=== PATIENT | female | born 1990 | race Caucasian/White ===

== ENCOUNTER 2017-03-12 11:15 | Emergency (ER) | payer SELFPAY ==
[~2017-03-12] VITALS: Ht 157.5 cm; Wt 108.9 kg
[~2017-03-12 11:15] MED LIST: FLUT16SP2 NAS; HYDR-3237 PO; LEVO750T26 PO; NORE1PAT7 TD; PANT40TA3 PO; POLY17PO5 PO; SIME80TA16 PO
[2017-03-12 11:16] VITALS: BP 131/84
[2017-03-12] MEDS ORDERED: DEXAMETHASONE 4 MG/ML, 5ML ONE (11:55)
[2017-03-12] MEDS ORDERED: DEXAMETHASONE 4 MG/ML, 1ML PO ONE (12:00)
== END 2017-03-12 12:30 | disposition home or self-care (01) ==
LOC: ED 11:36
DX: J02.0 Streptococcal pharyngitis (principal); L73.9 Follicular disorder, unspecified; Z90.49 Acquired absence of other specified parts of digestive tract
CPT/HCPCS: 99283; J1100

== ENCOUNTER 2017-03-26 06:33 | Emergency (ER) | payer OTHER ==
[~2017-03-26] VITALS: Ht 157.5 cm; Wt 111.1 kg
[2017-03-26 06:53] VITALS: BP 117/83
== END 2017-03-26 07:48 | disposition home or self-care (01) ==
LOC: ED 07:42
DX: J20.8 Acute bronchitis due to other specified organisms (principal); J00 Acute nasopharyngitis [common cold]
CPT/HCPCS: 99283